=== PATIENT | female | born 1965 | race African-American/Black ===

== ENCOUNTER 2019-06-19 10:00 | Emergency (ER) | payer OTHER, MEDICAID ==
[~2019-06-19] VITALS: Ht 162.6 cm; Wt 96.0 kg
[2019-06-19] MEDS ORDERED: MORPHINE SULFATE 4 MG/ML CPJ (NOT FOR IM USE) IV STA (10:25)
[2019-06-19 10:58] LABS: BASOPHILS % 0.4 % (0.0-2.0); EOSINOPHILS % 1.6 % (0.0-5.0); HEMATOCRIT. 42.1 % (36.0-48.0); HEMOGLOBIN. 14.4 g/dL (12.0-16.0); LYMPHOCYTES % 45.6 % (20.0-50.0); MEAN CORPUSCULAR HEMOGLOBIN 27.9 pg (28.0-32.0); MEAN CORPUSCULAR VOLUME 81.3 fL (81.0-99.0); MEAN PLATELET VOLUME 9.4 fl (7.4-10.4); MONOCYTES % 8.9 % (2.0-8.0); NEUTROPHILS % 43.5 % (40.0-76.0); PLATELET 160 x1000/uL (130-400); RED BLOOD CELL COUNT 5.17 mill/uL (4.2-5.4); RED CELL DISTRIBUTION WIDTH 17.2 % (11.6-14.6)
[2019-06-19 11:03] LABS: PROTHROMBIN TIME 10.5 sec (9.6-11.0)
[2019-06-19 11:04] LABS: CHLORIDE 106 mEq/L (98-107)
[2019-06-19 14:00] VITALS: BP 168/108
[2019-06-19] MEDS ORDERED: POTASSIUM CHLORIDE 20MEQ TABLET SR PO ONE (14:00)
== END 2019-06-19 16:44 | disposition short-term general hospital (02) ==
LOC: ER 10:00
DX: R94.39 Abnormal result of other cardiovascular function study (principal); M79.18 Myalgia, other site; C50.919 Malignant neoplasm of unspecified site of unspecified female breast; C79.51 Secondary malignant neoplasm of bone; Z88.5 Allergy status to narcotic agent; Z90.10 Acquired absence of unspecified breast and nipple
CPT/HCPCS: 36415; 71045; 80053; 84484; 85025; 85610; 93005; 96374; 99285; J2270